=== PATIENT | male | born 1955 | race Caucasian/White ===

== ENCOUNTER → 2016-09-25 | Outpatient (CLI) | payer BC ==
[~2016-09-25] MED LIST: ASPI-557 PO; BUPR150T8 PO; BUSP15TA3 PO; ESOM20CA PO; HYDR30CR79 TOP
== END ==
LOC: LAB 09-24 11:30
PROVIDERS: ATTEND Family Medicine
DX: R19.7 Diarrhea, unspecified (principal)
CPT/HCPCS: 87507